=== PATIENT | female | born 1990 | race Caucasian/White ===

== ENCOUNTER 2024-09-08 06:20 | Day surgery (SDC) | payer BC, SELFPAY ==
--- NOTE | 2024-09-06 10:47 | ESHP_ITS ---
RE: JUICE HARDY : 1990 DATE OF ADMISSION: 09/08/2024 HISTORY OF PRESENT ILLNESS: This is a 34-year-old 1, para 1 who is multiparous desires voluntary sterilization. She has also has Nexplanon subdermal implant in her left upper extremities that she would like removed. ALLERGIES: NO KNOWN DRUG ALLERGIES. MEDICATIONS: 1. Lisinopril 20 mg 1 p.o. daily. 2. Nexplanon 65 mg subdermal implant, left upper extremities. PAST MEDICAL HISTORY: Gestational diabetes mellitus, iron deficiency anemia, history of bariatric surgery in 2008, delivery, polycystic ovarian syndrome, bicornuate uterus, and chronic hypertension. SOCIAL HISTORY: She denies any alcohol, drug use, or smoking. FAMILY HISTORY: Breast cancer, lung cancer, diabetes, hypertension, obesity. OBSTETRIC HISTORY: In 06/2021, 40 weeks, delivery, 6 pound 11 ounce male. PAST SURGICAL HISTORY: delivery in 2020. Gastric bypass in 2008. PHYSICAL EXAMINATION: VITAL SIGNS: Blood pressure is 109/74, heart rate 80, respirations 18, temperature 98.2, and weight 192 pounds. HEENT: Oropharynx and sclerae are clear. LUNGS: Clear to auscultation bilaterally. HEART: Regular rate and rhythm. ABDOMEN: Old Pfannenstiel scar noted. EXTREMITIES: Nontender. SKIN: No gross rashes or lesions. NEUROLOGIC: No focal deficits. ASSESSMENT: Multiparity desires voluntary sterilization and desires removal of Nexplanon subdermal implant. PLAN: Laparoscopic bilateral salpingectomy and removal of Nexplanon subdermal implant. Informed consent was obtained. The patient was made aware of the risks, complications, alternatives, and benefits of the proposed procedure and she agrees. She is aware of the failure rate and the increased risk of tubo-ectopic gestation if occurs. She is aware of the reversible methods of control she declines those options. She is aware that vasectomy is simply easier and safer with a lower failure rate and her male partner declines that option. She is aware of the risks of injury to bowel, bladder, uterus, adjacent organs, pulmonary embolism, deep vein thrombosis, injury to the vessels of the abdominal wall, hematoma, abscess, wound infection, wound dehiscence, pelvic infection, reoperation to repair injury to internal organs, anesthesia complications, the possibility that laparotomy needs to be performed to complete the procedure or control bleeding, and the possibility that the procedure is not able to be completed due to severe adhesions or technical difficulties. DT: 08:35:17 TT: 10:45:00 Ref: [id number] - TID: [id number]
--- NOTE | 2024-09-07 07:36 | EKG_ITS ---
[facility] (Formerly [facility]) Test Date: 2024-09-07 Pat Name: JUICE HARDY Department: Room: - Gender: Female Commercial Correspondent: RTSJC : 1990 Requested By: Jack Johnson Order Number: [id number] Reading MD: Jack Johnson Measurements Intervals [place] Rate: 73 P: -12 IN: 129 QRS: 34 QRSD: 89 T: 19 QT: 372 QTc: 412 Interpretive Statements SINUS RHYTHM No previous ECG available for comparison /store/S0/[id number].pdf
[2024-09-07 07:41] VITALS: BMI 35.7
[2024-09-07 08:14] LABS: Basophils # (Auto) 0.1 Thou/mm3 (0.0-0.2); Basophils % (Auto) 1 % (0-2.5); Eosinophils % (Auto) 0 % (0-10); Hemoglobin 11.3 g/dL (12.0-16.0); Immature Granulocytes % (Auto) 0 % (0-0); Immature Granulocytes Auto 0.03 Thou/mm3 (0.00-0.00); Lymphocytes # (Auto) 1.7 Thou/mm3 (1.0-4.8); Lymphocytes % (Auto) 24 % (10-50); Mean Corpuscular HGB Conc 32.3 g/dl (31.0-37.0); Mean Corpuscular Hemoglobin 27.6 pg (25.0-35.0); Mean Corpuscular Volume 86 fL (80-100); Monocytes # (Auto) 0.4 Thou/mm3 (0.0-0.8); Monocytes % (Auto) 5 % (0-12); Neutrophils % (Auto) 70 % (37-80); Nucleated Red Blood Cell % 0 /100 WBC (0); Platelet Count 259 Thou/mm3 (140-440); RDW Standard Deviation 50.3 fL (36.4-46.3); Red Blood Count 4.09 Miln/mm3 (4.00-5.20); White Blood Count 7.2 Thou/mm3 (3.6-11.0)
[2024-09-07 08:36] LABS: Partial Thromboplastin Time 25.1 Seconds (22.0-36.0); Prothrombin Time 10.8 Seconds (9.0-12.2)
[2024-09-07 08:39] LABS: Alanine Aminotransferase 12 U/L (10-49); Albumin, Serum 4.3 gm/dL (3.5-5.0); Albumin/Globulin Ratio 1.7 (1.2-2.2); Alkaline Phosphatase 97 U/L (46-116); Anion Gap 8 (7-16); Aspartate Amino Transferase 13 U/L (0-34); BUN/Creatinine Ratio 24 Ratio (12-20); Beta HCG,Quantitative 1 mIU/mL (<5.0); Bilirubin,Total 0.7 mg/dL (0.3-1.2); Blood Urea Nitrogen 12 mg/dL (9-23); Calcium 8.6 mg/dL (8.3-10.6); Calcium (Corrected) 8.6 mg/dL (8.5-10.1); Carbon Dioxide 23.2 mMol/L (20.0-31.0); Chloride 107 mMol/L (98-107); Creatinine (Component) 0.5 mg/dL (0.6-1.3); Estimated Creatinine Clearance 162.4 mL/min (>60); Globulin 2.6 gm/dL (2.3-3.5); Glucose 89 mg/dL (74-106); Osmolality,Calculated 274 (275-295); Potassium 4.5 mMol/L (3.4-5.1); Sodium 138 mMol/L (136-145); Total Protein 6.9 gm/dL (5.7-8.2); eGFR > 60 See Note
[2024-09-08] VITALS (8 sets, daily range): BP systolic 112–142; BP diastolic 72–83; PULSE 62–90; RESP 12–20; TEMP 36.3–36.7; O2SAT 99–100; BMI 35.2
--- NOTE | 2024-09-08 09:42 | SUR.PHASEI ---
0942 Patient arrived to recovery resting comfortably in [facility], on oxygen 8L via oxy mask with an oral airway in place, breathing unlabored, vital signs stable, dressing intact to lower abdomen; dermabond, and to left arm; dermabond, no bleeding noted, lung sounds clear upon auscultation, bilateral radial pulses present when palpated, report received from Oliver WINTER and Adina Raymond CRNA
--- NOTE | 2024-09-08 10:35 | SUR.PHASEII ---
1035 Patient meets discharge criteria from recovery, awake and alert, breathing unlabored, vital signs stable, denies pain, dressing intact; no bleeding noted, patient eating ice chips; tolerating well, denies nausea, patient able to dress herself into her clothing, discharge instructions given to patient and patients mother, mother signed discharge instructions. Patient given all her belongings prior to discharge, transported via wheelchair and left in a private vehicle.
--- NOTE | 2024-09-09 07:44 | ESOP_ITS ---
RE: JUICE HARDY : 1990 DATE OF OPERATION: 09/08/2024 PREOPERATIVE DIAGNOSES: 1. Multiparity 2. Voluntary sterilization 3. Desire for removal of Nexplanon subdermal implant POSTOPERATIVE DIAGNOSES: 1. Multiparity 2. Voluntary sterilization 3. Desire for removal of Nexplanon subdermal implant PROCEDURE PERFORMED: Laparoscopic bilateral salpingectomy and removal of Nexplanon subdermal implant from the left upper extremity SURGEON: Ford Qureshi DO GOL[employer] ASSISTANT: Cassy Zhao ANESTHESIA: General ANESTHESIOLOGIST: Dr. Johnson ESTIMATED BLOOD LOSS: 5 mL COMPLICATIONS: None COUNTS: Correct PATHOLOGY: 1. Bilateral fallopian tubes 2. Nexplanon subdermal implant FINDINGS: Normal-appearing uterus, ovaries, and fallopian tubes and an intact Nexplanon subdermal implant. DESCRIPTION OF PROCEDURE: After appropriate informed consent was obtained, the patient was made aware of the risks, complications, alternatives, and benefits of the proposed procedure, she was taken to the operating room where she underwent induction of general anesthesia. She was placed in the dorsal lithotomy position. She was prepped and draped in the usual sterile fashion. A timeout was performed. The intrauterine manipulator was placed and then attention was entered to the abdomen where the physician regowned and gloved a 5-mm incision was made in the umbilical fold with tinting up of the abdomen, a Veress needle was inserted. Saline confirmed intraoperative placement. An artificial pneumoperitoneum was created to 12 mmHg. The Veress needle was then removed. A 5-mm trocar was inserted. The laparoscope connected video cannula was then utilized to visualize the pelvis. A second and third incision was made in the suprapubic region above the symphysis pubis and in the left lower quadrant. Through these 5 mm incisions, 5 mm trocars were inserted. Using the Harmonic scalpel, 06/23 andrew, the right salpingectomy was performed as well as a left salpingectomy. Hemostasis was achieved. Specimen was sent to Pathology. All instruments were removed from the abdomen. The carbon dioxide was removed from the peritoneal cavity. The incisions were closed with 4-0 Monocryl and covered with Dermabond. They were infiltrated with lidocaine. Attention was then turned to the vagina where the uterus manipulator was removed and then attention was then turned to the left arm where a 3 mm incision was made and the Nexplanon merlyn was removed. A 4-0 Monocryl was used to close the incision and covered with Dermabond. The patient was reversed from general anesthesia in the supine position and transferred to the recovery room in stable condition. She tolerated the procedure well. Counts were correct. I discussed with the patient the nature of her condition, the intraoperative findings, expectation for recovery. All questions answered. DT: 10:22:56 TT: 16:39:00 Ref: [id number] - TID: [id number]
== END 2024-09-08 10:35 | disposition home or self-care (01) ==
PROVIDERS: PCP Family Medicine; Referring Provider Specialist; Visit Provider Specialist
PROC: (CPT 58670; principal; 2024-09-08 08:30)
PROC: (CPT 11982; 2024-09-08 08:30)
DX: Z30.2 Encounter for sterilization (principal); E28.2 Polycystic ovarian syndrome; I10 Essential (primary) hypertension; Z64.1 Problems related to multiparity; Z98.84 Bariatric surgery status; Z01.810 Encounter for preprocedural cardiovascular examination
CPT/HCPCS: 11982; 58661; 36415; 80053; 84702; 85025; 85610; 85730; 86850; 86900; 86901; 93005; A4217; A4649; J0131; J0690; J1100; J1885; J2250; J2371; J2405; J2704; J3010; J3490; J0665